=== PATIENT | female | born 1985 | race Hispanic/Latino ===

== ENCOUNTER 2019-07-15 01:12 | Inpatient (IN) | payer OTHER ==
[2019-07-15] MEDS ORDERED: PROMETHAZINE 25 MG/ML VIAL IM PRN (04:13)
[2019-07-15] MEDS ORDERED: BUTORPHANOL 1 MG/ML INJ IV PRN (04:13)
[2019-07-15] MEDS ORDERED: Ringers Lactate 1,000 ML IV PRN (04:13)
[2019-07-15] MEDS ORDERED: METHYLERGONOVINE 0.2MG/ML AMP IM PRN (04:13)
[2019-07-15] MEDS ORDERED: CARBOPROST TROME 250 MCG/ML IM PRN (04:13)
[2019-07-15] MEDS ORDERED: Ringers Lactate 1,000 ML IV SCH (05:00)
[2019-07-15] MEDS ORDERED: OXYTOCIN/LR 20 UNIT/1,000 ML BAG IV SCH ×2 (05:00→08:00)
[2019-07-15 05:27] LABS: Urine Appearance CLEAR; Urine Bilirubin NEGATIVE (NEG); Urine Blood NEGATIVE (NEG); Urine Color YELLOW; Urine Glucose NEGATIVE (NEG); Urine Microscopic Reflex ORDER UMIC; Urine Protein NEGATIVE (NEG); Urine Specific Gravity 1.015 (1.005-1.030); Urine Urobilinogen 0.2 mg/dL (0.2-1.0)
[2019-07-15 05:31] LABS: Absolute Lymphocytes (CBC) 1.8 K/uL (0.7-4.9); Basophils % 0.4 % (0-1.3); Hematocrit 30.9 % (36.0-45.0); MPV 7.7 fL (7.6-11.3); RBC Red Blood Cell Count 3.85 M/uL (3.86-4.86)
[2019-07-15 05:39] LABS: Urine Bacteria <20 /HPF (<20); Urine Culture Reflex Order REFLEXED; Urine RBC NONE SEEN /HPF (NONE SEEN)
[2019-07-15 06:17] VITALS: BMI 35.6
--- NOTE | 2019-07-15 06:47 | PREOPHP ---
Date of Admission: 07/15/2019 A 34-year-old 3, para 2, at 39 weeks and 2 days, came in in spontaneous labor, 4 to 5 cm on a dmission. Then 6 cm within 30 minutes, now 8.5 to 9 cm, +1 station. Rupture of membranes, clear flu id. Anticipate delivery relatively soon. Full labor talk given. DAYA/EJ Voice ID: [id number]
[2019-07-15] MEDS ORDERED: LIDOCAINE 1% MPF 30 ML VIAL ONE (07:03)
[2019-07-15] MEDS ORDERED: DIPHENHYDRAMINE 25 MG TAB/CAP PO PRN (07:19)
[2019-07-15] MEDS ORDERED: BISACODYL 10 MG RECTAL SUPP RECT PRN (07:19)
[2019-07-15] MEDS ORDERED: IBUPROFEN 600 MG TAB PO PRN (07:19)
[2019-07-15] MEDS ORDERED: ACETAMINOPHEN 500 MG TAB PO PRN (07:19)
[2019-07-15] MEDS ORDERED: DOCUSATE NA/SENNA CONC 1 TAB PO PRN (07:19)
[2019-07-15] MEDS ORDERED: Oxycodone HCl/Acetaminophen 1 TAB TAB PO PRN ×2 (07:19)
--- NOTE | 2019-07-15 14:29 | OP ---
Surgeon: Will David MD 34-year-old 3, para 2, 39 weeks 2 days, came in, in active labor, 4 to 5 cm on admission, walter t rapidly to 6. When I examined patient she was 9, rupture of membranes, clear fluid. Patient went rapidly to complete. Second stage of basically 1, good series of pushing, 8 pounds 3 ounce male infa nt, Apgars 9 and 9. It is very small first-degree laceration, sutured with 2-0 chromic after local i nfiltration. Schultze delivery of the placenta, which was inspected and noted to be intact and lexie l. 350 mL or less blood loss. Rh positive, immune to Rubella. Negative beta strep screen. Tolerat ed all procedures well. Final Diagnoses: Term intrauterine , 39 weeks 2 days, spontaneous labor, vaginal delivery. DAYA/EJ Voice ID: [id number] Report ID: [id number]
[2019-07-15 22:51] LABS: RPR (Rapid Plasma Reagin) NON-REACT (NON-REACT)
[2019-07-16 09:13] VITALS: BP 125/72; TEMP 97.3
--- NOTE | 2019-07-17 01:42 | DS ---
Date of Discharge: 07/16/2019 History: A 34-year-old, 3, para 2, 39 weeks 2 days, came in in active labor. Delivered nancy guadalupe an 8-pounds 3-ounce male , Apgars 9 and 9. Local infiltration for repair of a small first- degree laceration. Schultze delivery of the placenta, which was inspected and noted to be intact and normal. 350 mL or less blood loss. Beta strep negative. Rh positive, immune to Rubella. Postpart um; afebrile, ambulating, and voiding. Lochia is normal. Will be dismissed to return to my office i n 6 weeks for followup, to report any temperature elevation of 100 degrees or greater, severe pain, h eavy bleeding, or any other type of abnormalities. Requests no analgesics on dismissal. Final Diagnoses: Term intrauterine , 39 weeks 2 days, spontaneous vaginal delivery. DAYA/EJ Voice ID: [id number] Report ID: [id number]
[2019-07-18 04:18] LABS: HBsAG Nonreactive (Nonreactive)
== END 2019-07-16 10:00 | disposition home or self-care (01) | DRG 807 ==
LOC: 2ND-WC 04:09
PROVIDERS: ADMIT Specialist; ATTEND Specialist
PROC: 10907ZC Drainage of Amniotic Fluid, Therapeutic from Products of Conception, Via Natural or Artificial Opening (ICD-10-PCS; principal; 2019-07-15)
PROC: 10E0XZZ Delivery of Products of Conception, External Approach (ICD-10-PCS; 2019-07-15)
PROC: 0HQ9XZZ Repair Perineum Skin, External Approach (ICD-10-PCS; 2019-07-15)
DX: O70.0 First degree perineal laceration during delivery (principal); Z37.0 Single live birth; Z3A.39 39 weeks gestation of pregnancy
CPT/HCPCS: 36415; 81003; 81015; 85025; 86592; 86901; 87086; 87088; 87340; J2590; J7120